=== PATIENT | female | born 1985 | race Caucasian/White ===

== ENCOUNTER → 2022-07-08 | Outpatient (CLI) | payer SELFPAY | END | disposition home or self-care (01) | PROVIDERS: PCP Physician Assistant; Visit Provider Obstetrics & Gynecology | DX: O09.529 Supervision of elderly multigravida, unspecified trimester (principal); Z3A.00 Weeks of gestation of pregnancy not specified | CPT/HCPCS: 87086; 87088 ==

== ENCOUNTER → 2022-08-04 | Outpatient (CLI) | payer SELFPAY ==
[2022-08-04 17:14] LABS: Absolute Lymphocyte Count 1.61 X10^3/uL (0.83-4.51); Absolute Neutrophil Count 9.2 X10^3/uL (2.0-7.7); Basophil# 0.02 X10^3/uL; Basophil% 0.2 % (0-1); Eosinophil# 0.13 X10^3/uL; Eosinophils% 1.1 % (0-5); Hematocrit 35.5 % (37-47); Hemoglobin 12.3 g/dL (12.0-15.0); Lymphocyte # 1.61 X10^3/ul (0.83-4.51); Lymphocyte % 13.7 % (19-41); Mean Corp Hgb Conc 34.6 g/dL (32-36); Mean Corpuscular Hgb 29.9 pg (27.0-32.0); Mean Corpuscular Volume 86.2 fL (81-99); Mean Platelet Vol. 9.5 fl (6.2-12.0); Monocyte# 0.62 X10^3/uL; Monocyte% 5.3 % (0-10); NRBC Flagged by Analyzer 0 % (0-5); Neutrophil # 9.24 X10^3/uL (2.7-7.7); Neutrophil % 78.3 % (47-70); Platelet Count 227 K/mm3 (150-450); RBC Distribution Width CV 13.2 % (11.6-14.6); RBC Distribution Width SD 41.1 fl (35.1-43.9); Red Blood Count 4.12 M/mm3 (4.2-5.4); White Blood Count 11.8 K/mm3 (4.4-11.0)
[2022-08-04 17:47] LABS: Glucose Challenge Gest 1H 50g 115 mg/dL (70-140)
[2022-08-04 18:50] LABS: HIV - WCH Non-Reactive (Nonreactive); Hepatitis B Surface Antigen Non-Reactive (Nonreactive); Hepatitis C Antibody Non-Reactive (Nonreactive); Rubella IgG Equiv (Nonreactive); Syphilis Antibodies Non-reactive
== END | disposition home or self-care (01) ==
LOC: LAB 16:40
PROVIDERS: PCP Physician Assistant; Visit Provider Obstetrics & Gynecology
DX: O09.529 Supervision of elderly multigravida, unspecified trimester (principal)
CPT/HCPCS: 36415; 82950; 85025; 86703; 86762; 86780; 86803; 86850; 86900; 86901; 87340

== ENCOUNTER → 2022-08-18 | Outpatient (CLI) | payer SELFPAY, OTHER ==
--- NOTE | 2022-08-18 13:01 | US_ITS ---
STUDY: SECOND AND THIRD TRIMESTER OBSTETRICAL ULTRASOUND REASON FOR EXAM: Female, 36 years old anatomy LMP: 01/21/2022 TECHNIQUE: Transabdominal and Transvaginal TECHNICAL QUALITY: Adequate. PRIOR ULTRASOUND: None. FINDINGS: There is a single intrauterine fetus. The fetus is in a cephalic presentation. There is demonstrated cardiac activity with a heart rate of 146 bpm. There is a normal amniotic fluid volume. The largest amniotic fluid pocket measures 7.9 cm. The amniotic fluid index (JAMEY) is 23.71 cm. The placenta is posterior and left lateral in location and is not low lying. There are Grade 1 placental changes. The cervix measures 4.4 cm in length. The adnexal regions are not visualized. BIOMETRY: BPD: 7.78 cm: 31 weeks, 1 days HC: 28.91 cm : 31 weeks, 6 days AC: 26.11 cm: 30 weeks, 2 days FL: 5.17 cm: 27 weeks, 4 days CI: 77.4% FL/BPD: 66.5% FL/HC: FL/AC: 19.8% HC/AC: 1.11 age by current US: 30 weeks, 4 days. BRENDAN by current US: 10/23/2021. Estimated weight: 1427 grams, +/- 214 grams, 30 %. Age by LMP: 29 weeks, 6 days. BRENDAN by LMP: 10/28/2022. ANATOMY: Gender: Female Cranium: Normal lateral ventricles. Normal choroid plexus. Normal cerebellum. Normal cisterna magna. Normal face, nose and lips. Chest: Normal 4-chamber heart. Abdomen/Pelvis: Normal diaphragm. Normal stomach. Normal abdominal wall. Normal cord insertion. Normal 3 vessel cord. Normal kidneys. Normal bladder. Spine: Normal cervical spine. Normal thoracic spine. Normal lumbar spine. Normal sacrum. Extremities: Normal bilateral upper extremities. Normal bilateral lower extremities. IMPRESSION: Single live uterine gestation with a mean gestational age of 30 weeks and 4 days. Electronically Signed: Terrence Mcmanus MD at 10:54 EST , STUDY: FIRST TRIMESTER OBSTETRICAL ULTRASOUND REASON FOR EXAM: Female, 36 years old . Cervical length. LMP: 01/21/2022 TECHNIQUE: Transvaginal TECHNICAL QUALITY: Adequate. PRIOR ULTRASOUND: None. FINDINGS: Cervical length measures 4.4 cm. US/OB Anatomy Scan IMPRESSION: Cervical length measures 4.4 cm. Electronically Signed: Terrence Mcmanus MD at 10:54 EST ,
--- NOTE | 2022-08-18 13:01 | ECHOD_ITS ---
Reason For Study: ARRYTHMIA Procedure This was a 2D Doppler, Color Flow transthoracic echocardiogram. Exam performed in department. Left Ventricle Normal LV size. Left ventricular systolic function is normal. The estimated ejection fraction is 65 %. No evidence for diastolic dysfunction. No regional wall motion abnormalities noted. Right Ventricle Normal RV size. Normal systolic function. Atria Borderline enlarged left atrium. Normal right atrium. No doppler evidence for ASD. Mitral Valve There is no mitral annular calcification. Normal mitral valve. Trivial mitral valve insufficiency. Tricuspid Valve Normal tricuspid valve. Trivial tricuspid valve insufficiency. Right ventricular systolic pressure estimated to be 26 mmHg. Aortic Valve Trisinus/trileaflet aortic valve. Normal aortic valve. Pulmonic Valve The pulmonic valve is not well visualized. Great Vessels Normal sized aortic root. Pericardium/Pleural No pericardial effusion. MMode/2D Measurements & Calculations LVIDd: 4.7 cm IVSd: 1.2 cm Ao root diam: 3.5 cm LVIDs: 3.3 cm LVPWd: 1.0 cm RVDd: 3.4 cm FS: 30.3 % LAV(MOD-bp): 91.4 ml LVAd ap4: 36.2 cm2 SV(MOD-sp4): 90.7 ml LAV(MOD-bp) Indexed: 40.9 ml/m2 LVLd ap4: 8.1 cm LAV(MOD-sp2): 94.4 ml EDV(MOD-sp4): 131.7 ml LAV(MOD-sp4): 82.7 ml EDV(sp4-el): 136.8 ml LVAs ap4: 17.2 cm2 LVLs ap4: 6.2 cm ESV(MOD-sp4): 41.0 ml ESV(sp4-el): 40.2 ml EF(MOD-sp4): 68.9 % EF(sp4-el): 70.6 % SV(sp4-el): 96.5 ml LA A4 area: 24.6 cm2 LA dimension(2D): 4.0 cm RA A4 area: 18.7 cm2 Time Measurements MV dec time: 0.13 sec Doppler Measurements & Calculations MV E max sonido: 103.4 cm/sec Lat Peak E' Sonido: 13.5 cm/sec Med Peak E' Sonido: 9.2 cm/sec MV A max sonido: 75.7 cm/sec E/E' lat: 7.7 E/E' med: 11.2 MV E/A: 1.4 MV V2 max: 117.6 cm/sec Ao V2 max: 168.5 cm/sec MV max P.5 mmHg MV dec slope: 809.5 cm/sec2 Ao max P.4 mmHg MV V2 mean: 74.2 cm/sec Ao V2 mean: 111.7 cm/sec MV mean P.4 mmHg Ao mean P.8 mmHg MV V2 VTI: 33.3 cm Ao V2 VTI: 33.4 cm AV (velocity ratio): 0.79 LV V1 max: 129.8 cm/sec PA V2 max: 118.7 cm/sec TR max sonido: 237.8 cm/sec LV V1 max P.7 mmHg PA V2 mean: 81.0 cm/sec TR max P.6 mmHg LV V1 mean P.7 mmHg LV V1 mean: 90.1 cm/sec LV V1 VTI: 26.3 cm ECHO/Echo Complete Interpretation Summary Left ventricular systolic function is normal. The estimated ejection fraction is 65 %. Borderline enlarged left atrium. Trivial mitral valve insufficiency. Trivial tricuspid valve insufficiency. Right ventricular systolic pressure estimated to be 26 mmHg. No evidence for diastolic dysfunction. Ordering Physician: Prosper Rollins Referring Physician: Prosper Rollins Performed By: Belgica Pritchett RCS
== END | disposition home or self-care (01) ==
LOC: CVS 12:59
PROVIDERS: PCP Physician Assistant; Referring Provider Internal Medicine Cardiovascular Disease; Visit Provider Internal Medicine Cardiovascular Disease
DX: O09.529 Supervision of elderly multigravida, unspecified trimester (principal); I47.1 Supraventricular tachycardia; O99.891 Other specified diseases and conditions complicating pregnancy; R01.1 Cardiac murmur, unspecified; Z3A.00 Weeks of gestation of pregnancy not specified
CPT/HCPCS: 76805; 76817; 93306

== ENCOUNTER 2022-09-16 12:25 | Outpatient (CLI) | payer OTHER, SELFPAY ==
[2022-09-16 12:32] VITALS: BMI 44.7
--- NOTE | 2022-09-16 12:32 | US_ITS ---
STUDY: OBSTETRICAL ULTRASOUND - BIOPHYSICAL PROFILE REASON FOR EXAM: Female, 36 years old deceleration in office LMP: 01/21/2022. PRIOR ULTRASOUND: Comparison is made with prior study dated 08/18/2022. TECHNIQUE: Transabdominal TECHNICAL QUALITY: Adequate. FINDINGS: There is a single intrauterine fetus. The fetus is in a cephalic presentation. There is demonstrated cardiac activity with a heart rate of 137 bpm. There is a normal amniotic fluid volume. The largest amniotic fluid pocket measures 4.3 cm. The amniotic fluid index (JAMEY) is 13.4 cm. The placenta is fundal in location. There are Grade 0 placental changes. Age by LMP: 34 weeks, 0 days. BRENDAN by LMP: 10/28/2022. BIOPHYSICAL PROFILE: Breathing Movements (FBM): 2 Gross Body Movements (GBM): 2 Tone (FT): 2 Amniotic Fluid Volume (AFV): 2 TOTAL SCORE: 8 / 8 US/Biophysical Prof W/O Non Stres IMPRESSION: Normal biophysical profile of 04/05. Electronically Signed: Terrence Mcmanus MD at 14:05 EST ,
[2022-09-16 12:54] VITALS: BP 133/82; PULSE 69; TEMP 36.7; O2SAT 98
[2022-09-16] MEDS: Betamethasone/Betamethasone 30 MG/5 ML Vial 12 MG IM (14:49)
[2022-09-16 14:56] LABS: Absolute Lymphocyte Count 1.43 X10^3/uL (0.83-4.51); Absolute Neutrophil Count 9.6 X10^3/uL (2.0-7.7); Basophil# 0.03 X10^3/uL; Basophil% 0.3 % (0-1); Eosinophil# 0.11 X10^3/uL; Eosinophils% 0.9 % (0-5); Hematocrit 37.8 % (37-47); Hemoglobin 12.7 g/dL (12.0-15.0); Lymphocyte # 1.43 X10^3/ul (0.83-4.51); Lymphocyte % 12.1 % (19-41); Mean Corp Hgb Conc 33.6 g/dL (32-36); Mean Corpuscular Hgb 29.1 pg (27.0-32.0); Mean Corpuscular Volume 86.7 fL (81-99); Mean Platelet Vol. 9.3 fl (6.2-12.0); Monocyte% 5.1 % (0-10); NRBC Flagged by Analyzer 0 % (0-5); Neutrophil # 9.56 X10^3/uL (2.7-7.7); Neutrophil % 80.8 % (47-70); Platelet Count 225 K/mm3 (150-450); RBC Distribution Width CV 13.2 % (11.6-14.6); RBC Distribution Width SD 41.4 fl (35.1-43.9); Red Blood Count 4.36 M/mm3 (4.2-5.4); White Blood Count 11.8 K/mm3 (4.4-11.0)
[2022-09-16 20:10] VITALS: BP 117/64; PULSE 80; TEMP 36.7
--- NOTE | 2022-09-17 00:25 | HP.PCM.OB_ITS ---
HPI - General General Date of Admission: 09/16/22 HPI Narrative MIRELLA CASTRO, is a 36 F who presents secondary to heart rate late decelerations x2. Patient was seen in the office for routine NST and had a late on the monitor and therefore was sent down for extended monitoring and had an 8 out of 8 BPP but had another isolated late deceleration. Overall heart rate tracing is reassuring patient is being admitted for extended monitoring due to the presence of the 2 Decels. Maternal Data Information BRENDAN Calculator Estimated Delivery Date Method Current WG Current Estimate 10/28/22 LMP (Certain) 34w 1d PFSH PFS Medical History Essential hypertension Palpitation SVT (supraventricular tachycardia) Home Medications vit,calcium no.40-iron fum 27 mg iron-folate no.1 1 mg tablet (PNV- Select) tab PO 06/29/22 [History Last Taken Unknown] metoprolol tartrate 100 mg tablet 100 mg PO DAILY #90 tabs 07/09/22 [Rx Last Taken Unknown] calcium carbonate 600 mg calcium (1,500 mg) tablet (Calcium) 600 mg PO DAILY 08/04/22 [History Last Taken Unknown] Allergy/AdvReac Type Severity Reaction Status Date / Time No Known Allergies Allergy Verified 09/16/22 12:43 Family History Grandmother Breast cancer, Onset Age: 60 maternal Aunt Breast cancer, Onset Age: 60 two maternal Aunts with breast cancer Uterine cancer, Onset Age: 60 maternal Aunt Heart valve replaced Social History adopted: No household members: spouse and children housing: house number of children: 7 current occupational status: unemployed 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 current occupational exposures/hazards: No pets and animals: No history of recent travel: No sexually active: Yes Smoking Status: Never smoker alcohol intake: never substance use type: does not use well-balanced diet: daily or most days caffeine: No eating out: rarely or never during the past year weight has: increased > 10 lbs what type of physical activity do you participate in: none aurora/latter day: Taoist seatbelt use: sometimes do you feel safe at home: Yes additional social history: Edgardo- Olson/excavating History 11 Elective abortions Hx Para 7 Spontaneous abortions 3 Hx # Term Pregnancies Ectopic pregnancies Hx # Pregnancies Multiple births # of living children 7 Past Pregnancies Del. 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 with middle school principal Cathie Reynoso 07/08/17 Diamond 39 live - full term Female Tristan Reynoso 09/11/20 Mary Beth 39 live - full term Female Tristan Reynoso Delivery Date: 02/11/06 Last Updated by: Susan Reynolds IOL Pre-eclampsia Delivery Date: 07/01/08 Last Updated by: Susan Reynolds pitocin Visit Details Expected Delivery Route/Plan Labor Preferences- CB/BF classes: [] labor support person: [] labor intervention preferences: [] pain management options preferred: [] cut cord/dad catch: [] : [] PP control planned: [] discussed possible routes of delivery and associated risks: [] special requests: [] Plans Covid status: [] Flu vaccine: [] Tdap vaccine: [] Rhogam: [] LARC form signed: [] Problem list reviewed and updated with the most current plan of care details and appropriate orders placed. Relevant counseling for the gestational age provided. Continue routine care and follow up unless otherwise noted in visit notes/problem list details OB Flowsheet Initial Weight: Not Recorded Date -?-?-?-?-?-?-?-?-?-?-?-?- EGA Weight BP Urine Prot -?-?-?-?-?-?-?-?-?-?-?-?- Glucose FHR FuHt Pres Dilation -?-?-?-?-?-?-?-?-?-?-?-?- Effaced St Visit Note 07/08/22 -?-?-?-?-?-?-?-?-?-?-?-?- 24w 0d 117.991 kg 124/83 Negat crow -?-?-?-?-?-?-?-?-?-?-?-?- Negative 144 25 -?-?-?-?-?-?-?-?-?-?-?-?- JV- pt is a jurado sfer from [facility] due to hypertension and heart arrhythmia. Pt states that she has had this for several years on and off. She delivered her first 2 babies at [facility], her next 3 at home and last 2 at a birthing center. 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 Appt today for cardiology was missed due to being in our office. will get rescheduled. Plan for ultrasound and GCT at very minimum. other labs also ordered. 08/04/22 -?-?-?-?-?-?-?-?-?-?-?-?- 27w 6d 120.429 kg 134/83 Negat crow -?-?-?-?-?-?-?-?-?-?-?-?- Negative 155 -?-?-?-?-?-?-?-?-?-?-?-?- JV- no lof ,vagi nal bleeding, or dec fm. her son was involved in a traumatic fall and was hospitalized for brain bleed so missed her us. us rescheduled. did gct today and saw cardiology today. plan is for Echo. rto in 2 weeks. 08/18/22 -?-?-?-?-?-?-?-?-?-?-?-?- 29w 6d 121.109 kg 115/75 Negat crow -?-?-?-?-?-?-?-?-?-?-?-?- Negative 156 28 -?--?-?-?-?-?-?-?-?-?-?-?- JV- no lof, vagi nal bleeding, or dec fm. had growth scan today, plan for monthly growth scans, and also had echo. both results are pending 09/03/22 -?-?-?-?-?-?-?-?-?-?-?-?- 32w 1d 122.47 kg 120/77 -?-?-?-?-?-?-?-?-?-?-?-?- 140 -?-?-?-?-?-?-?-?-?-?-?-?- SM- nst today 09/16/22 -?-?-?-?-?-?-?-?-?-?-?-?- 34w 0d 122.243 kg 126/78 Negat crow -?-?-?-?-?-?-?-?-?-?-?-?- Negative 150 -?-?-?-?-?-?-?-?-?-?-?-?- JV- prolonged de kayla after a contraction but with variability within the decel, suspect cord compression but sending to L&D for prolonged monitoring and BPP. 09/16/22 -?-?-?-?-?-?-?-?-?-?-?-?- 34w 0d 121.8 kg 133/82 117/64 -?-?-?-?-?-?-?-?-?-?-?-?- -?-?-?-?-?-?-?-?-?-?-?-?- NST FHR Rate Baby A Baseline: 140 Variability:: Moderate Accelerations:: 15 x 15 Decelerations:: Late (Isolated initially upon evaluation) NST Reactive:: Yes FHR Category:: Category I (Now) Uterine Activity:: no reg Vital Signs Vital Signs Vital Signs: 09/16/22 12:54 09/16/22 12:54 09/16/22 12:54 Temperature Temperature Source Temporal Pulse Rate 69 Blood Pressure 133/82 H BP Systolic 133 BP Diastolic 82 Pulse Ox 09/16/22 12:54 09/16/22 12:54 09/16/22 20:10 Temperature 98.0 F Temperature Source Pulse Rate Blood Pressure 117/64 BP Systolic 117 BP Diastolic 64 Pulse Ox 98 09/16/22 20:10 09/16/22 20:10 09/16/22 20:10 Temperature 98.0 F Temperature Source Temporal Pulse Rate 80 Blood Pressure BP Systolic BP Diastolic Pulse Ox Weight Weight: 121.8 kg Body Mass Index (BMI) 44.7 Labs Labs Labs: Blood Type O POSITIVE Antibody Screen NEGATIVE Hct 37.8 % (37-47) Hgb 12.7 g/dL (12.0-15.0) Obstetrics US Syphilis Total Ab Non-reactive Rubella IgG Antibody Equiv (Nonreactive) Hep Bs Antigen Non-Reactive (Nonreactive) HIV 1&2 Antibody Non-Reactive (Nonreactive) Glucose 1 Hr 50 gm 115 mg/dL (70-140) Assessment & Plan (1) Late deceleration of heart rate: (2) Rubella non-immune status, antepartum: COMMENT: MMR post delivery (3) Essential hypertension: COMMENT: followed by cardiology on metoprolol. deliver 39 weeks or sooner if bp's not controlled start nsts 32 weeks , weekly. monthly growth ultrasounds (4) Cardiac dysrhythmia: COMMENT: metoprolol (5) Supervision of high-risk of elderly multigravida: COMMENT: PRR , BRENDAN 10/28/22 Lucas Carroll, ([place]ort[place] 16.5week loss), Emmanuel Chan Calvin, Jennica, Mary Beth Egdardo (6) : QUALIFIERS: Weeks of gestation: 34 weeks Qualified Code(s): Z3A.34 - 34 weeks gestation of COMMENT: anatomy nl, borderline high JAMEY, repeat 3-4 wks, discussed genetic and carrier testing (7) History of multiple miscarriages: COMMENT: 2 miscarriages 9 weeks, 1-16.5 week loss PLAN: Plan Admit patient for short-term observation, betamethasone given for prematurity. BPP 8 out of 8 Charges/Coding Multi Select Codes Visit Charges Observation E&M Codin Initial observation care L3 Urinary/Genital Urinary/Genital CPT Codes: 44809-17 non-stress test Interp
[2022-09-17 01:15] VITALS: TEMP 36.7
[2022-09-17 01:16] VITALS: BP 111/62; PULSE 76
[2022-09-17 09:33] VITALS: BP 126/79; PULSE 85
[2022-09-17] MEDS: Betamethasone/Betamethasone 30 MG/5 ML Vial 12 MG IM (11:40)
[2022-09-17 11:45] VITALS: BP 128/80; PULSE 74
[2022-09-17] MEDS: Prenatal Vits Tablet 1 TABLET PO (11:45)
[2022-09-17] MEDS: Metoprolol Tartrate 100 MG Tablet PO (11:45)
[2022-09-17 11:46] VITALS: BP 128/80; PULSE 74
--- NOTE | 2022-09-17 13:34 | PN.OBGYN_ITS ---
Subjective Subjective no decelerations overnight reassuring heart rate tracing patient doing well Objective Data Objective Data Vital Signs: Vital Signs Temp Pulse BP Pulse Ox 98.1 F 74 128/80 H 98 09/17/22 01:15 09/17/22 11:46 09/17/22 11:46 09/16/22 12:54 Weight: 268 lb 8.368 oz Body Mass Index (BMI) 44.7 Lab / Micro Data Result Diagrams: 09/16/22 14:45 Labs: Laboratory Results - last 24 hr 09/16/22 14:45: WBC 11.8 H, RBC 4.36, Hgb 12.7, Hct 37.8, MCV 86.7, MCH 29.1, MCHC 33.6, RDW Std Deviation 41.4, RDW Coeff of Mervat 13.2, Plt Count 225, MPV 9.3, Immature Gran % (Auto) 0.800, Neut % (Auto) 80.8 H, Lymph % (Auto) 12.1 L, [place] % (Auto) 5.1, Eos % (Auto) 0.9, Baso % (Auto) 0.3, Absolute Neuts (auto) 9.6 H, Absolute Lymphs (auto) 1.43, Nucleated RBC % 0 09/16/22 14:45: Blood Type O POSITIVE, Antibody Screen NEGATIVE Radiography Diagnostic Testing: Radiology Impression Biophysical Profile Ultrasound 09/16/22 12:32 IMPRESSION: Normal biophysical profile of 88. Electronically Signed: Terrence Mcmanus MD at 14:05 EST Reading Location ID and State: [address] [place] [address] , Service support , ROS Constitutional Constitutional: Reports systems reviewed and no addt'l complaints, except as documented and as per HPI ENT HEENT: Reports systems reviewed and no addt'l complaints, except as documented Cardiovascular Cardiovascular: Reports systems reviewed and no addt'l complaints, except as documented Respiratory/Chest Respiratory/Chest: Reports systems reviewed and no addt'l complaints, except as documented Gastrointestinal Gastrointestinal: Reports as per HPI Genitourinary Genitourinary: Reports as per HPI Musculoskeletal Musculoskeletal: Reports systems reviewed and no addt'l complaints, except as documented Integumentary Integumentary: Reports systems reviewed and no addt'l complaints, except as documented Neurologic Neurologic: Reports systems reviewed and no addt'l complaints, except as documented Physical Exam Const alert, oriented x3 and no apparent distress HEENT Head and Scalp: normocephalic and atraumatic Neck full ROM and no lymphadenopathy Chest inspection of chest normal Resp normal respiratory effort GI GI Narrative: gravid, abdomen nontender, AGA NST FHR Rate Baby A Baseline: 140 Variability:: Moderate Accelerations:: 15 x 15 Decelerations:: None NST Reactive:: Yes FHR Category:: Category I Uterine Activity:: no reg Assessment & Plan (1) Late deceleration of heart rate: COMMENT: Status post short-term observation with steroid administration 09/16 and 09/17 (2) Rubella non-immune status, antepartum: COMMENT: MMR post delivery (3) Essential hypertension: COMMENT: followed by cardiology on metoprolol. deliver 39 weeks or sooner if bp's not controlled start nsts 32 weeks , weekly. monthly growth ultrasounds (4) Supervision of high-risk of elderly multigravida: COMMENT: PRR , BRENDAN 10/28/22 PC Lucas Yan, (Cortés 16.5week loss), Emmanuel Chan Calvin, Jennica, Lashawna Edgardo (5) : QUALIFIERS: Weeks of gestation: 34 weeks Qualified Code(s): Z3A.34 - 34 weeks gestation of COMMENT: anatomy nl, borderline high JAMEY, repeat 3-4 wks, discussed genetic and carrier testing (6) History of multiple miscarriages: COMMENT: 2 miscarriages 9 weeks, 1-16.5 week loss PLAN: Plan Discharge to home after second steroid dose today and recommend growth ultrasound and BPP at the beginning and next week and follow-up in the office for NST the end of the week. Charges/Coding Multi Select Codes Visit Charges Observation E&M Codin Observation care discharge Urinary/Genital Urinary/Genital CPT Codes: 38827-76 non-stress test Interp
== END 2022-09-17 12:00 | disposition home or self-care (01) ==
LOC: WPOUT 12:31 → WP 12:32
PROVIDERS: PCP Physician Assistant; Visit Provider Obstetrics & Gynecology
DX: O36.8330 Maternal care for abnormalities of the fetal heart rate or rhythm, third trimester, not applicable or unspecified (principal); O10.913 Unspecified pre-existing hypertension complicating pregnancy, third trimester; O26.23 Pregnancy care for patient with recurrent pregnancy loss, third trimester; O09.523 Supervision of elderly multigravida, third trimester; O99.413 Diseases of the circulatory system complicating pregnancy, third trimester; I49.9 Cardiac arrhythmia, unspecified; Z3A.34 34 weeks gestation of pregnancy
CPT/HCPCS: 36415; 59025; 59050; 76819; 85025; 86850; 86900; 86901; 96372; 99221; G0378; J0702

== ENCOUNTER → 2022-09-23 | Outpatient (CLI) | payer SELFPAY, OTHER ==
--- NOTE | 2022-09-23 14:27 | US_ITS ---
STUDY: SECOND AND THIRD TRIMESTER OBSTETRICAL ULTRASOUND REASON FOR EXAM: Female, 36 years old growth TECHNIQUE: Transabdominal PRIOR ULTRASOUND: 09/16/2022. FINDINGS: There is a single intrauterine fetus. The fetus is in a transverse lie with the head on the maternal right side. There is demonstrated cardiac activity with a heart rate of 144 bpm. There is a normal amniotic fluid volume. The largest amniotic fluid pocket measures 5.9 cm. The amniotic fluid index (JAMEY) is 18 cm. The placenta is fundal. There are Grade 1 placental changes. The cervix measures 5.4 cm in length. The adnexal regions are not visualized. BPD: 8.9 cm = 35 weeks, 6 day(s) HC: 32.2 cm = 36 weeks, 3 day(s) AC: 32.6 cm = 36 weeks, 3 day(s) FL: 6.7 cm = 34 weeks, 4 day(s) EGA by ultrasound: 35 weeks 5 day(s) BRENDAN by ultrasound: 10/23/22 Estimated weight: 2826 grams Weight percentile: 75% US/OB Limited With Biometrics IMPRESSION: Living intrauterine with estimated gestational age of 35 weeks and 5 days. Electronically Signed: Thomas Marques MD at 17:27 EST ,
== END | disposition home or self-care (01) ==
PROVIDERS: PCP Physician Assistant; Referring Provider Obstetrics & Gynecology; Visit Provider Obstetrics & Gynecology
DX: I10 Essential (primary) hypertension (principal)
CPT/HCPCS: 76816

== ENCOUNTER 2022-09-30 17:52 | Inpatient (IN) | payer SELFPAY, OTHER ==
[2022-09-30] VITALS (11 sets, daily range): BP systolic 114–147; BP diastolic 61–96; PULSE 82–97; TEMP 36.3–37.2; O2SAT 97; BMI 43.7
[2022-09-30 13:34] LABS: Group B Strep DNA By PCR POSITIVE (Negative); Probe Check PASS
[2022-09-30] MEDS: Lactated Ringers 1,000 ML 100 ML IV (15:15)
[2022-09-30] MEDS: Oxytocin 15 Units/NS 250ml 15 UNITS/250 ML IV.SOLN IV (16:00)
[2022-09-30 18:33] LABS: Absolute Lymphocyte Count 0.73 X10^3/uL (0.83-4.51); Absolute Neutrophil Count 8.2 X10^3/uL (2.0-7.7); Basophil# 0.02 X10^3/uL; Basophil% 0.2 % (0-1); Eosinophil# 0.08 X10^3/uL; Eosinophils% 0.8 % (0-5); Hematocrit 38.9 % (37-47); Hemoglobin 12.5 g/dL (12.0-15.0); Lymphocyte # 0.73 X10^3/ul (0.83-4.51); Lymphocyte % 7.5 % (19-41); Mean Corp Hgb Conc 32.1 g/dL (32-36); Mean Corpuscular Hgb 28.7 pg (27.0-32.0); Mean Corpuscular Volume 89.4 fL (81-99); Mean Platelet Vol. 10.2 fl (6.2-12.0); Monocyte# 0.58 X10^3/uL; NRBC Flagged by Analyzer 0 % (0-5); Neutrophil # 8.17 X10^3/uL (2.7-7.7); Neutrophil % 84.4 % (47-70); Platelet Count 232 K/mm3 (150-450); RBC Distribution Width CV 13.5 % (11.6-14.6); RBC Distribution Width SD 44.1 fl (35.1-43.9); Red Blood Count 4.35 M/mm3 (4.2-5.4); White Blood Count 9.7 K/mm3 (4.4-11.0)
[2022-09-30] MEDS: miSOPROStol 25 MCG TABLET VAGINAL ×2 (19:00→23:02)
--- NOTE | 2022-09-30 19:25 | HP.PCM.OB_ITS ---
HPI - General General Date of Admission: 09/30/22 HPI Narrative MIRELLA CASTRO, is a 36 F who presents with equivocal [employer] S[employer]IOR [employer]OCIATE after having a late decel in the office. she has had issues in the past with this and received steroids two weeks ago during an admission for late decels. Maternal Data Information BRENDAN Calculator Estimated Delivery Date Method Current WG Current Estimate 10/28/22 LMP (Certain) 36w 0d PFSH PFSH Medical History Essential hypertension Palpitation SVT (supraventricular tachycardia) Home Medications vit,calcium no.40-iron fum 27 mg iron-folate no.1 1 mg tablet (PNV- Select) 1 tab PO DAILY md ordered 06/29/22 [History Last Taken 09/29/22] calcium carbonate 600 mg calcium (1,500 mg) tablet (Calcium) 600 mg PO DAILY md ordered 08/04/22 [History Last Taken 09/29/22] metoprolol tartrate 100 mg tablet (Lopressor) 100 mg PO DAILY md ordered 09/30/22 [History Last Taken 09/30/22] Allergy/AdvReac Type Severity Reaction Status Date / Time No Known Allergies Allergy Verified 09/30/22 12:05 Family History Grandmother Breast cancer, Onset Age: 60 maternal Aunt Breast cancer, Onset Age: 60 two maternal Aunts with breast cancer Uterine cancer, Onset Age: 60 maternal Aunt Heart valve replaced Social History adopted: No household members: spouse and children housing: house number of children: 7 current occupational status: unemployed 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 current occupational exposures/hazards: No pets and animals: No history of recent travel: No sexually active: Yes Smoking Status: Never smoker alcohol intake: never substance use type: does not use well-balanced diet: daily or most days caffeine: No eating out: rarely or never during the past year weight has: increased > 10 lbs what type of physical activity do you participate in: none aurora/zoroastrian: Caodaism seatbelt use: sometimes do you feel safe at home: Yes additional social history: Edgardo- Olson/excavating History 11 Elective abortions Hx Para 7 Spontaneous abortions 3 Hx # Term Pregnancies Ectopic pregnancies Hx # Pregnancies Multiple births # of living children 7 Past Pregnancies Del. 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 Cathie Reynoso 07/08/17 Diamond 39 live - full term Female Tristan Reynoso 09/11/20 Mary Beth 39 live - full term Female Tristan Reynoso Delivery Date: 02/11/06 Last Updated by: Susan Reynolds IOL Pre-eclampsia Delivery Date: 07/01/08 Last Updated by: Susan Reynolds pitocin Visit Details Expected Delivery Route/Plan Labor Preferences- CB/BF classes: [] labor support person: [] labor intervention preferences: [] pain management options preferred: [] cut cord/dad catch: [] : [] PP control planned: [] discussed possible routes of delivery and associated risks: [] special requests: [] Plans Covid status: [] Flu vaccine: [] Tdap vaccine: [] Rhogam: [] LARC form signed: [] Problem list reviewed and updated with the most current plan of care details and appropriate orders placed. Relevant counseling for the gestational age provided. Continue routine care and follow up unless otherwise noted in visit notes/problem list details OB Flowsheet Initial Weight: Not Recorded Date -?-?-?-?-?-?-?-?-?-?-?-?- EGA Weight BP Urine Prot -?-?-?-?-?-?-?-?-?-?-?-?- Glucose FHR FuHt Pres Dilation -?-?-?-?-?-?-?-?-?-?-?-?- Effaced St Visit Note 07/08/22 -?-?-?-?-?-?-?-?-?-?-?-?- 24w 0d 260 lb 2 oz 124/83 Nega tive -?-?-?-?-?-?-?-?-?-?-?-?- Negative 144 25 -?-?-?-?-?-?-?-?-?-?-?-?- JV- pt is a jurado sfer from [facility] due to hypertension and heart arrhythmia. Pt states that she has had this for several years on and off. She delivered her first 2 babies at [facility], her next 3 at home and last 2 at a birthing center. (all vaginal deliveries) She is willing and excited to meet our track superintendent if she is is stable. Appt today for cardiology was missed due to being in our office. will get rescheduled. Plan for ultrasound and GCT at very minimum. other labs also ordered. 08/04/22 -?-?-?-?-?-?-?-?-?-?-?-?- 27w 6d 265 lb 8 oz 134/83 Nega tive -?-?-?-?-?-?-?-?-?-?-?-?- Negative 155 -?-?-?-?-?-?-?-?-?-?-?-?- JV- no lof ,vagi nal bleeding, or dec fm. her son was involved in a traumatic fall and was hospitalized for brain bleed so missed her us. us rescheduled. did gct today and saw cardiology today. plan is for Echo. rto in 2 weeks. 08/18/22 -?-?-?-?-?-?-?-?-?-?-?-?- 29w 6d 267 lb 115/75 Negative -?-?-?-?-?-?-?-?-?-?-?-?- Negative 156 28 -?-?-?-?-?-?-?-?-?-?-?-?- JV- no lof, vagi nal bleeding, or dec fm. had growth scan today, plan for monthly growth scans, and also had echo. both results are pending 09/03/22 -?-?-?-?-?-?-?-?-?-?-?-?- 32w 1d 270 lb 120/77 -?-?-?-?-?-?-?-?-?-?-?-?- 140 -?-?-?-?-?-?-?-?-?-?-?-?- SM- nst today 09/16/22 -?-?-?-?-?-?-?-?-?-?-?-?- 34w 0d 269 lb 8 oz 126/78 Nega tive -?-?-?-?-?-?-?-?-?-?-?-?- Negative 150 -?-?-?-?-?-?-?-?-?-?-?--?- JV- prolonged de kayla after a contraction but with variability within the decel, suspect cord compression but sending to L&D for prolonged monitoring and BPP. 09/20/22 -?-?-?-?-?-?-?-?-?-?-?-?- 34w 4d 270 lb 6 oz 126/83 Nega tive -?-?-?-?-?-?-?-?-?-?-?-?- Negative 140 -?-?-?-?-?-?-?-?-?-?-?-?- MH-NST only reac tive 09/23/22 -?-?-?-?-?-?-?-?-?-?-?-?- 35w 0d 270 lb 4 oz 123/85 Nega tive -?-?-?-?-?-?-?-?-?-?-?-?- Negative 140 -?-?-?-?-?-?-?-?-?-?-?-?- JV- nst reactive . plan for IOL at 38 weeks. 09/30/22 -?-?-?-?-?-?-?-?-?-?-?-?- 36w 0d 270 lb 2 oz 116/76 Nega tive -?-?-?-?-?-?-?-?-?-?-?-?- Negative 150 -?-?-?-?-?-?-?-?-?-?-?-?- JV- late decel o n NST today. otherwise reactive. sending to L&D for further monitoring. She has already undergone steroids and understands may stay for induction if persists 09/30/22 -?-?-?-?-?-?-?-?-?-?-?-?- 36w 0d 271 lb 139/92 147/96 114/61 118/66 141/78 139/71 128/87 134/77 -?-?-?-?-?-?-?-?-?-?-?-?- -?-?-?-?-?-?-?-?-?-?-?-?- Notes Visit Date: 09/23/22 Last Updated by: Renee Oliva, DO JV- NST FHR Rate Baby A Baseline: 140 Variability:: Moderate Accelerations:: 15 x 15 Decelerations:: None NST Reactive:: Yes FHR Category:: Category I Uterine Activity:: irregular ROS Constitutional Constitutional: Reports systems reviewed and no addt'l complaints, except as documented Eyes Eyes: Denies change in vision ENT HEENT: Reports systems reviewed and no addt'l complaints, except as documented; Denies headache(s) Cardiovascular Cardiovascular: Reports systems reviewed and no addt'l complaints, except as documented; Denies chest pain or dyspnea Respiratory/Chest Respiratory/Chest: Reports systems reviewed and no addt'l complaints, except as documented Gastrointestinal Gastrointestinal: Reports systems reviewed and no addt'l complaints, except as documented; Denies abdominal pain Genitourinary Genitourinary: Reports systems reviewed and no addt'l complaints, except as documented, contractions Details: present (irregular) and movement Details: present; Denies dysuria or genital lesions Musculoskeletal Musculoskeletal: Reports systems reviewed and no addt'l complaints, except as do cumented Neurologic Neurologic: Reports systems reviewed and no addt'l complaints, except as documented Endocrine Endocrinology: Reports systems reviewed and no addt'l complaints, except as documented Vital Signs Vital Signs Vital Signs: 09/30/22 12:21 09/30/22 12:21 09/30/22 12:37 Temperature Temperature Source Pulse Rate 93 Blood Pressure 139/92 H 147/96 H BP Systolic 139 147 BP Diastolic 92 96 Pulse Ox 09/30/22 12:37 09/30/22 12:42 09/30/22 12:42 Temperature Temperature Source Pulse Rate 93 85 Blood Pressure BP Systolic BP Diastolic Pulse Ox 97 09/30/22 12:37 09/30/22 12:37 09/30/22 12:37 Temperature Temperature Source Temporal Pulse Rate 84 Blood Pressure BP Systolic BP Diastolic Pulse Ox 97 09/30/22 12:37 09/30/22 12:44 09/30/22 12:44 Temperature 98.9 F Temperature Source Pulse Rate 82 Blood Pressure 114/61 BP Systolic 114 BP Diastolic 61 Pulse Ox 09/30/22 12:53 09/30/22 12:53 09/30/22 14:10 Temperature Temperature Source Pulse Rate 86 Blood Pressure 118/66 141/78 H BP Systolic 118 141 BP Diastolic 66 78 Pulse Ox 09/30/22 14:10 09/30/22 14:21 09/30/22 14:21 Temperature Temperature Source Pulse Rate 84 86 Blood Pressure 139/71 H BP Systolic 139 BP Diastolic 71 Pulse Ox 09/30/22 15:53 09/30/22 15:53 09/30/22 15:53 Temperature Temperature Source Temporal Pulse Rate 88 Blood Pressure 128/87 H BP Systolic 128 BP Diastolic 87 Pulse Ox 09/30/22 15:53 09/30/22 15:53 09/30/22 16:35 Temperature 98.2 F Temperature Source Pulse Rate 88 Blood Pressure 134/77 H BP Systolic 134 BP Diastolic 77 Pulse Ox 09/30/22 16:35 Temperature Temperature Source Pulse Rate 85 Blood Pressure BP Systolic BP Diastolic Pulse Ox Weight Weight: 271 lb Body Mass Index (BMI) 43.7 Physical Exam Const alert, oriented x3, no apparent distress and healthy appearing HEENT normocephalic and moist oral mucous membranes Head and Scalp: atraumatic Neck full ROM, no lymphadenopathy, supple and thyroid normal General: trachea midline Lymph Lymphatic: no lymphadenopathy noted Chest inspection of chest normal Resp normal respiratory effort Cardio regular rate GI normal to inspection, nondistended, normoactive bowel sounds, soft to palpation and non-tender Inspection: gravid external exam normal Manual OB Exam: estimated gestational size appropriate, presentation cephalic, dilated, effaced and station Extremity normal to inspection General Extremity: Negative for edema Skin no rashes or lesions noted Neuro no focal motor deficits and deep tendon reflexes 2+ bilaterally Motor Exam: strength 5/5 throughout and clonus absent Psych mental status grossly normal Labs Labs Labs: Blood Type O POSITIVE Antibody Screen NEGATIVE Hct 38.9 % (37-47) Hgb 12.5 g/dL (12.0-15.0) Obstetrics US Syphilis Total Ab Non-reactive Rubella IgG Antibody Equiv (Nonreactive) Hep Bs Antigen Non-Reactive (Nonreactive) HIV 1&2 Antibody Non-Reactive (Nonreactive) Glucose 1 Hr 50 gm 115 mg/dL (70-140) Group B Strep DNA POSITIVE (Negative) H Assessment & Plan (1) Late deceleration of heart rate: COMMENT: Status post short-term observation with steroid administration 09/16 and 09/17 (2) Rubella non-immune status, antepartum: COMMENT: MMR post delivery (3) Cardiac murmur: COMMENT: s/p echo (4) Palpitation: (5) Essential hypertension: COMMENT: followed by cardiology on metoprolol. deliver 38-39 weeks or sooner if bp's not controlled start nsts 32 weeks , weekly. 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 Pain management: plans epidural. GBS negative. Management of any complications: HTN and arrhythmias I have reviewed the [facility] and made any clinically relevant updates.
[2022-09-30 22:19] LABS: Chlamydia Trachomatis by PCR Negative (Negative); Neisserai gonorrhoeae by PCR Negative (Negative); Probe Check PASS; Sample Adequacy Control PASS; Specimen Processing Control PASS
[2022-10-01] VITALS (42 sets, daily range): BP systolic 111–149; BP diastolic 62–101; PULSE 72–99; RESP 16–18; TEMP 36.6–37.1; O2SAT 79–99
[2022-10-01] MEDS: miSOPROStol 25 MCG TABLET VAGINAL (03:06)
[2022-10-01] MEDS: Lactated Ringers 1,000 ML 50 ML IV (04:25)
[2022-10-01] MEDS: 0.9% Normal Saline Single 100 ML IV.SOLN. INTRA-UTER (05:21)
[2022-10-01] MEDS: LACTATED RINGERS 500 ML 999 ML IV ×2 (06:09→07:55)
[2022-10-01] MEDS: Oxytocin 15 Units/NS 250ml 15 UNITS/250 ML IV.SOLN 2 UNITS IV (06:49)
[2022-10-01] MEDS: fentaNYL-bupivacaine (epidural) 100 ML BAG EPIDURAL (07:55)
[2022-10-01] MEDS: Metoprolol Tartrate 100 MG Tablet PO (10:07)
[2022-10-01] MEDS: Oxytocin 15 Units/NS 250ml 15 UNITS/250 ML IV.SOLN 83 UNITS IV (11:29)
[2022-10-02 00:32] VITALS: BP 112/63; PULSE 79; RESP 18
[2022-10-02 05:04] VITALS: BP 130/86; PULSE 84; RESP 18
[2022-10-02] MEDS: Acetaminophen 500 MG Tablet 1000 MG PO ×2 (08:51→20:11)
[2022-10-02 08:58] VITALS: BP 117/80; PULSE 70; RESP 16; TEMP 36.6; O2SAT 97
--- NOTE | 2022-10-02 09:02 | OP.PCM_ITS ---
Assessment & Plan (1) Late deceleration of heart rate: COMMENT: Status post short-term observation with steroid administration 09/16 and 09/17 (2) Rubella non-immune status, antepartum: COMMENT: MMR post delivery (3) Cardiac murmur: COMMENT: s/p echo (4) Essential hypertension: COMMENT: followed by cardiology on metoprolol. deliver 38-39 weeks or sooner if bp's not controlled start nsts 32 weeks , weekly. monthly growth ultrasounds, 09/23 growth 2826g 75% (5) Cardiac dysrhythmia: COMMENT: metoprolol (6) Supervision of high-risk of elderly multigravida: COMMENT: PRR , BRENDAN 10/28/22 PC Lucas Yan, (Cortés 16.5week loss), Emmanuel Chan Calvin, Jennica, Lashawna Edgardo (7) : QUALIFIERS: Weeks of gestation: 36 weeks Qualified Code(s): Z3A.36 - 36 weeks gestation of COMMENT: anatomy nl, borderline high JAMEY, repeat 3-4 wks, discussed genetic and carrier testing (8) History of multiple miscarriages: COMMENT: 2 miscarriages 9 weeks, 1-16.5 week loss (9) Vaginal delivery: COMMENT: SM IOL decel 36 Maternal Data Information BRENDAN Calculator Estimated Delivery Date Method Current WG Current Estimate 10/28/22 LMP (Certain) 36w 2d Vaginal Delivery Operative Information Pre-Operative Diagnosis: IAL Post-Operative Diagnosis: same Surgery / Procedure Performed: Spontaneous Vaginal Delivery Type of Anesthesia: Epidural Special Medications: none Estimated Blood Loss: 100 Fluids Replaced: crystalloid Findings Description of Procedure: Patient began pushing and delivered the head in the NAHOMI presentation. The head was delivered atraumatically. The anterior and posterior shoulders delivered without complication followed by the rest of the and the was placed on the maternal abdomen. Delayed cord clamping was employed for approximately 60 seconds. Cord was clamped and cut and gentle traction was applied to the cord and the placenta delivered spontaneously immediately following it was noted to be intact with three-vessel cord. The perineum and vagina were inspected and noted to have no laceration. EBL was 100 cc. Patient and infant tolerated delivery well. Presentation: NAHOMI Amniotic Membrane Rupture Type: Artificial Amniotic Fluid Description: Clear Placental Delivery Description: Spontaneous Placenta Disposition: [facility] Cord Vessel Description: 3 Vessels Cord Entanglement: None Delayed Cord Clamping: Yes Post Vaginal Delivery Medications Given After Delivery: IV Pitocin Episiotomy Description: None Laceration: None Complication Complications: None Procedures Urinary/Genital [id number]: [id number] Vaginal Delivery [facility]
--- NOTE | 2022-10-02 09:17 | DCINST_ITS ---
Discharge Instructions Diet Discharge Diet: No restrictions Activity Discharge Activity: Return to Normal Activity, May Drive, May Shower and May Take a Tub Bath (in 4 weeks) May resume sexual activity in: 6-8 weeks (after seen by OB provider) Weight Bearing Status: Full weight bearing Lifting Restrictions: none Dressing / Incision Call your doctor if you observe: Fever of 101 or Higher, Inability to urinate, Using more than 1 pad per hour (for more than 2 hours in a row or more), Shortness of breath, Dizziness, Chest pain and - (headache not controlled with tylenol, change in vision) Follow Up Care When: in 6 weeks for visit, call the office to make the appointment. If you had elevated blood pressures call the office to be seen within 1 week. Test Results: Test results from this visit will be discussed in further detail at your follow- up appointment, if applicable. Discharge Plan Admission Admit Date/Time: 09/30/22 17:52 Attending Provider: Liset Lira Primary Care Provider: Osmany Mackay Discharge Orders/Prescriptions Prescriptions: No Action PNV-Select 27-1 mg tablet 1 tab PO DAILY calcium carbonate [Calcium 600] 600 mg calcium (1,500 mg) tablet 600 mg PO DAILY metoprolol tartrate [Lopressor] 100 mg tablet 100 mg PO DAILY Referrals / Follow Up: Osmany Mackay PA-C [Primary Care Provider] - Disposition Disposition (needs filled in before D/C Order can be placed): Home, Self Care
--- NOTE | 2022-10-02 09:17 | PCM.PN.OB ---
Subjective Subjective Patient doing well without complaints. Tolerating PO. Ambulating and voiding without difficulty. feeding well. Denies chest pain, shortness of breath, calf pain/swelling, fevers, chills, lightheadedness. Objective Data Objective Data Vital Signs: Vital Signs Temp Pulse Resp BP Pulse Ox O2 Del Method 98 F 84 18 130/86 H 98 Room Air 10/01/22 20:40 10/02/22 05:04 10/02/22 05:04 10/02/22 05:04 10/01/22 16:29 10/02/22 05:04 Oxygen Delivery Method Room Air Weight: 271 lb Body Mass Index (BMI) 43.7 Intake & Output: Intake and Output for Last 24 Hours 09/30/22 10/01/22 10/02/22 23:59 23:59 23:59 Intake Total 276.42 / 276.42 3125.83 / 3125.83 Output Total 500 / 500 450 / 450 Balance -223.58 / -223.58 2675.83 / 2675.83 Lab / Micro Data Result Diagrams: 09/30/22 15:15 ROS Constitutional Constitutional: Reports systems reviewed and no addt'l complaints, except as documented Cardiovascular Cardiovascular: Reports systems reviewed and no addt'l complaints, except as documented Respiratory/Chest Respiratory/Chest: Reports systems reviewed and no addt'l complaints, except as documented Gastrointestinal Gastrointestinal: Reports systems reviewed and no addt'l complaints, except as documented Physical Exam Const alert, oriented x3 and no apparent distress HEENT Head and Scalp: atraumatic Resp normal respiratory effort GI soft to palpation and non-tender Bimanual Exam - Vag & Uterus: uterus non-tender Uterus Palpation: uterus fundus firm (below Umbilicus) Assessment & Plan (1) Vaginal delivery: COMMENT: SM IOL decel 36 PLAN: Plan s/p PPD # 1 1. routine post delivery care 2. breast feeding- support given 3. rh positive 4. rubella nonimmune
[2022-10-02 10:32] VITALS: PULSE 70
[2022-10-02] MEDS: Metoprolol Tartrate 100 MG Tablet PO (10:32)
[2022-10-02 15:45] VITALS: BP 126/85; PULSE 84; RESP 16; TEMP 36.6; O2SAT 97
[2022-10-02 20:08] VITALS: BP 118/91; PULSE 95; RESP 18; TEMP 37.1; O2SAT 96
[2022-10-02] MEDS: FLU VACC QS2022-23(6MOS UP)/PF 60 MCG/0.5 ML SYRINGE IM (20:11)
[2022-10-03 02:54] VITALS: BP 127/85; PULSE 75; RESP 16; TEMP 36.8; O2SAT 97
[2022-10-03 08:53] VITALS: BP 136/90; PULSE 108; RESP 16; TEMP 36.8
--- NOTE | 2022-10-03 09:25 | PCM.PN.OB ---
Subjective Subjective Patient doing well without complaints. Tolerating PO. Ambulating and voiding without difficulty. feeding well. Denies chest pain, shortness of breath, calf pain/swelling, fevers, chills, lightheadedness. Objective Data Objective Data Vital Signs: Vital Signs Temp Pulse Resp BP Pulse Ox O2 Del Method 98.2 F 108 H 16 136/90 H 97 Room Air 10/03/22 08:53 10/03/22 08:53 10/03/22 08:53 10/03/22 08:53 10/03/22 02:54 10/03/22 02:54 Oxygen Delivery Method Room Air Weight: 271 lb Body Mass Index (BMI) 43.7 Intake & Output: Intake and Output for Last 24 Hours 10/01/22 10/02/22 10/03/22 23:59 23:59 23:59 Intake Total 3125.83 / 3125.83 Output Total 450 / 450 Balance 2675.83 / 2675.83 Lab / Micro Data Result Diagrams: 09/30/22 15:15 ROS Constitutional Constitutional: Reports systems reviewed and no addt'l complaints, except as documented Cardiovascular Cardiovascular: Reports systems reviewed and no addt'l complaints, except as documented Respiratory/Chest Respiratory/Chest: Reports systems reviewed and no addt'l complaints, except as documented Gastrointestinal Gastrointestinal: Reports systems reviewed and no addt'l complaints, except as documented Physical Exam Const alert, oriented x3 and no apparent distress HEENT Head and Scalp: atraumatic Resp normal respiratory effort GI soft to palpation and non-tender Bimanual Exam - Vag & Uterus: uterus non-tender Uterus Palpation: uterus fundus firm (below Umbilicus) Assessment & Plan (1) Vaginal delivery: COMMENT: SM IOL decel 36 (2) Essential hypertension: COMMENT: followed by cardiology on metoprolol. deliver 38-39 weeks or sooner if bp's not controlled start nsts 32 weeks , weekly. monthly growth ultrasounds, 09/23 growth 2826g 75% (3) Cardiac dysrhythmia: COMMENT: metoprolol PLAN: Plan s/p PPD # 2 1. routine post delivery care 2. breast feeding- support given 3. rh positive 4. rubella nonimmune
[2022-10-03 10:30] VITALS: BP 136/90; PULSE 108
[2022-10-03] MEDS: Metoprolol Tartrate 100 MG Tablet PO (10:30)
--- NOTE | 2022-10-12 10:01 | DS.PCM_ITS ---
Providers Date of Admission: 09/30/22 Primary Care Physician: Dr. Osmany Mackay, PA-C Reason For Visit: VAG DELIVERY Diagnosis Discharge Diagnosis (1) Vaginal delivery: Status: Acute Code(s): O80 - Encounter for full-term uncomplicated delivery (2) Essential hypertension: Status: Acute Code(s): I10 - Essential (primary) hypertension (3) Cardiac dysrhythmia: Status: Acute Code(s): I49.9 - Cardiac arrhythmia, unspecified Plan s/p PPD # 2 1. routine post delivery care 2. breast feeding- support given 3. rh positive 4. rubella nonimmune Medications at Discharge Home Medications vit,calcium no.40-iron fum 27 mg iron-folate no.1 1 mg tablet (PNV- Select) 1 tab PO DAILY md ordered 06/29/22 calcium carbonate 600 mg calcium (1,500 mg) tablet (Calcium) 600 mg PO DAILY md ordered 08/04/22 metoprolol tartrate 100 mg tablet (Lopressor) 100 mg PO DAILY md ordered 09/30/22 Hospital Course Summary of Care Provided Hospital Course: admitted IOL and had vaginal delivery uncomplicated discharge home PPD2 Weight / BMI Weight Weight: 271 lb Body Mass Index (BMI) 43.7 ABG / Lab / Microbiology Data Result Diagrams: 09/30/22 15:15 D/C Instructions Discharge Diet: No restrictions May resume sexual activity in: 6-8 weeks (after seen by OB provider) Weight Bearing Status: Full weight bearing Call your doctor if you observe: Fever of 101 or Higher, Inability to urinate, Using more than 1 pad per hour (for more than 2 hours in a row or more), Shortness of breath, Dizziness, Chest pain and - (headache not controlled with tylenol, change in vision) When: in 6 weeks for visit, call the office to make the appointment. If you had elevated blood pressures call the office to be seen within 1 week. Meaningful Use Info Meaningful Use Diagnoses (Choose all that apply): None applicable Discharge Plan Admission Admit Date/Time: 09/30/22 17:52 Attending Provider: Liset Lira Primary Care Provider: Osmany Mackay Discharge Orders/Prescriptions Prescriptions: No Action PNV-Select 27-1 mg tablet 1 tab PO DAILY calcium carbonate [Calcium 600] 600 mg calcium (1,500 mg) tablet 600 mg PO DAILY metoprolol tartrate [Lopressor] 100 mg tablet 100 mg PO DAILY Referrals / Follow Up: Osmany Mackay PA-C [Primary Care Provider] - Disposition Disposition (needs filled in before D/C Order can be placed): Home, Self Care
== END 2022-10-03 14:30 | disposition home or self-care (01) | DRG 805 ==
LOC: WPOUT 17:52 → WP 17:52
PROVIDERS: Admitting Provider Obstetrics & Gynecology; PCP Physician Assistant; Visit Provider Obstetrics & Gynecology
DX: O76 Abnormality in fetal heart rate and rhythm complicating labor and delivery (principal); Z37.0 Single live birth; O99.42 Diseases of the circulatory system complicating childbirth; I47.1 Supraventricular tachycardia; O10.92 Unspecified pre-existing hypertension complicating childbirth; Z3A.36 36 weeks gestation of pregnancy; O26.23 Pregnancy care for patient with recurrent pregnancy loss, third trimester; O99.892 Other specified diseases and conditions complicating childbirth; R01.1 Cardiac murmur, unspecified; Z78.9 Other specified health status; Z79.899 Other long term (current) drug therapy; Z87.59 Personal history of other complications of pregnancy, childbirth and the puerperium; Z23 Encounter for immunization
CPT/HCPCS: 59025; 59050; 76815; 85025; 86850; 86900; 86901; 87491; 87591; 87653; 99221; J7120; 90686; G0378

== ENCOUNTER → 2022-11-16 | Outpatient (CLI) | payer SELFPAY ==
[2022-11-22 14:31] LABS: HPV APTIMA, High Risk Negative (Negative)
== END | disposition home or self-care (01) ==
LOC: LABSPEC 14:21
PROVIDERS: PCP Physician Assistant; Referring Provider Obstetrics & Gynecology; Visit Provider Obstetrics & Gynecology
DX: Z12.4 Encounter for screening for malignant neoplasm of cervix (principal)
CPT/HCPCS: 87624; 88175; G0145

== ENCOUNTER → 2024-06-22 | Outpatient (CLI) | payer SELFPAY ==
[2024-06-22 12:37] LABS: Absolute Lymphocyte Count 1.48 X10^3/uL (0.83-4.51); Absolute Neutrophil Count 7.3 X10^3/uL (2.0-7.7); Basophil# 0.01 X10^3/uL; Basophil% 0.1 % (0-1); Eosinophil# 0.12 X10^3/uL; Eosinophils% 1.2 % (0-5); Hematocrit 38.4 % (37-47); Lymphocyte # 1.48 X10^3/ul (0.83-4.51); Lymphocyte % 15.4 % (19-41); Mean Corp Hgb Conc 33.9 g/dL (32-36); Mean Corpuscular Hgb 29.4 pg (27.0-32.0); Mean Corpuscular Volume 86.9 fL (81-99); Mean Platelet Vol. 10.2 fl (6.2-12.0); Monocyte# 0.67 X10^3/uL; NRBC Flagged by Analyzer 0 % (0-5); Neutrophil # 7.26 X10^3/uL (2.7-7.7); Neutrophil % 75.6 % (47-70); Platelet Count 242 K/mm3 (150-450); RBC Distribution Width CV 13.4 % (11.6-14.6); Red Blood Count 4.42 M/mm3 (4.2-5.4); White Blood Count 9.6 K/mm3 (4.4-11.0)
[2024-06-22 13:15] LABS: Protein, Urine (Random) < 6.0 mg/dL (<11.9)
[2024-06-22 13:35] LABS: HIV - WCH Non-Reactive (Nonreactive); Hepatitis B Surface Antigen Non-Reactive (Nonreactive); Hepatitis C Antibody Non-Reactive (Nonreactive); Rubella IgG Reactive (Nonreactive); Syphilis Antibodies Non-reactive
[2024-06-22 13:47] LABS: ALB/GLOB Ratio 0.9 RATIO (0.9-2.4); AST(SGOT) 23 U/L (15-37); Alanine Aminotransfer ALT/SGPT 36 U/L (13-56); Albumin, Serum 3.5 g/dL (3.2-5.0); Alkaline Phosphatase 55 U/L (45-117); Anion Gap 9 (5-15); BUN 11 mg/dL (7-18); BUN/Creat Ratio 23.2 RATIO (10-20); Calcium,Total 9.1 mg/dL (8.5-10.1); Chloride 107 mmol/L (98-107); Creatinine, Serum 0.47 mg/dL (0.55-1.02); EST Glomerular Filtration Rate 154 mL/min (>60); Est Glom Filt Rate - Afr Amer 186 mL/min (>60); Glucose 82 mg/dL (74-106); Potassium 3.9 mmol/L (3.5-5.1); Protein, Total 7.5 g/dL (6.4-8.2); Sodium Level 138 mmol/L (136-145)
[2024-06-25 20:08] LABS: Chlamydia By Nucleic Acid AMP Negative (Negative); Gonococcus By Nucleic Acid AMP Negative (Negative)
== END | disposition home or self-care (01) ==
LOC: WOBLAB 11:20
PROVIDERS: PCP Physician Assistant; Referring Provider Obstetrics & Gynecology; Visit Provider Obstetrics & Gynecology
DX: O09.511 Supervision of elderly primigravida, first trimester (principal); O99.210 Obesity complicating pregnancy, unspecified trimester; O09.299 Supervision of pregnancy with other poor reproductive or obstetric history, unspecified trimester; Z3A.00 Weeks of gestation of pregnancy not specified
CPT/HCPCS: 36415; 80053; 82570; 83036; 84156; 85025; 86703; 86762; 86780; 86803; 86850; 86900; 86901; 87086; 87340; 87491; 87591

== ENCOUNTER → 2024-08-07 | Outpatient (CLI) | payer SELFPAY ==
--- NOTE | 2024-08-07 14:02 | US_ITS ---
STUDY: SECOND AND THIRD TRIMESTER OBSTETRICAL ULTRASOUND REASON FOR EXAM: Female, 38 years old Anatomy Scan TECHNIQUE: Transabdominal and Transvaginal TECHNICAL QUALITY: Adequate. PRIOR ULTRASOUND: None. FINDINGS: There is a single intrauterine fetus. The fetus is in a breech presentation. There is demonstrated cardiac activity with a heart rate of 169 bpm. There is a normal amniotic fluid volume. The largest amniotic fluid pocket measures 4.3 cm. The amniotic fluid index (JAMEY) is within normal limits. The placenta is posterior in location and is not low lying. There are Grade 0 placental changes. The cervix measures 4.4 cm in length. The bilateral adnexal regions are normal. BIOMETRY: BPD: 4.6 cm: 20 weeks, 0 days: 31% HC: 18.4 cm: 20 weeks, 5 days: 57% AC: 16.3 cm: 21 weeks, 3 days: 75% FL: 3.2 cm: 19 weeks, 6 days: 24% CI: 71% FL/BPD: 69% FL/HC: 17% FL/AC: 20% HC/AC: 1.1 age by current US: 20 weeks, 4 days. BRENDAN by current US: December 21, 2024. Estimated weight: 369 grams, +/- 50 grams, 58 %. Age by LMP: 20 weeks, 3 days. BRENDAN by LMP: December 22, 2024. ANATOMY: Gender: Indeterminant Cranium: Normal lateral ventricles. Normal choroid plexus. Normal cerebellum. Normal cisterna magna. Normal face, nose and lips. Chest: Normal 4-chamber heart. Abdomen/Pelvis: Normal diaphragm. Normal stomach. Normal abdominal wall. Normal cord insertion. Normal 3 vessel cord. Normal kidneys. Normal bladder. Spine: Not well visualized due to the position. Extremities: Normal bilateral upper extremities. Normal bilateral lower extremities. IMPRESSION: Single live intrauterine gestation with a mean gestational age of 20 weeks and 4 days. Limited evaluation of the spine due to the positioning. Electronically Signed: Terrence Mcmanus MD at 14:43 EST , STUDY: FIRST TRIMESTER OBSTETRICAL ULTRASOUND REASON FOR EXAM: Female, 38 years old. Cervical length. TECHNIQUE: Transvaginal TECHNICAL QUALITY: Adequate. PRIOR ULTRASOUND: None. FINDINGS: Cervical length measures 4.4 cm. US/OB Anatomy Scan IMPRESSION: Cervical length measures 4.4 cm. Electronically Signed: Terrence Mcmanus MD at 14:44 EST ,
--- NOTE | 2024-08-07 14:04 | EKG12_ITS ---
Test Reason : HIGH RISK Blood Pressure : */* mmHG Vent. Rate : 75 BPM Atrial Rate : 75 BPM P-R Int : 150 ms QRS Dur : 86 ms QT Int : 376 ms P-R-T Axes : 52 62 28 degrees QTcB Int : 419 ms Normal sinus rhythm Normal ECG Confirmed by COLLEEN ROMERO, SANTIAGO ([id number]), supervising editor news reel PEARL JOYNER ([id number]) on 08/08/2024 11:16:52 AM Referred By: Liset Lira Confirmed By: SANTIAGO MACIAS MD
== END | disposition home or self-care (01) ==
PROVIDERS: PCP Physician Assistant; Referring Provider Obstetrics & Gynecology; Visit Provider Obstetrics & Gynecology
DX: O16.2 Unspecified maternal hypertension, second trimester (principal); Z3A.00 Weeks of gestation of pregnancy not specified
CPT/HCPCS: 76805; 93005

== ENCOUNTER → 2024-09-18 | Outpatient (CLI) | payer SELFPAY ==
--- NOTE | 2024-09-18 11:47 | US_ITS ---
HISTORY: complete anatomy -- spinal views needed. TECHNIQUE: Transabdominal pelvic ultrasound was performed. 59 images. COMPARISON: 08/07/2024. FINDINGS: INTRAUTERINE GESTATION(s): Single. PRESENTATION: Breech, head to maternal right HEART MOTION: 140 bpm. PLACENTA: Fundal, grade 0. CERVIX: 4.4 cm, long and closed. AMNIOTIC FLUID: Largest fluid pocket 6.7 cm. ANATOMY: Small thin fluid-filled membrane posterior to the cervical spine. Thoracic, lumbar, and sacral spine visualized and unremarkable. US/OB Limited (No Biometrics) IMPRESSION: Single living intrauterine currently in breech presentation with possible small cystic hygroma. Recommend close follow-up. Electronically Signed: Tiera Valverde MD at 9:04 EST ,
== END | disposition home or self-care (01) ==
PROVIDERS: PCP Physician Assistant; Referring Provider Obstetrics & Gynecology; Visit Provider Obstetrics & Gynecology
DX: O09.92 Supervision of high risk pregnancy, unspecified, second trimester (principal); Z82.79 Family history of other congenital malformations, deformations and chromosomal abnormalities; Z3A.00 Weeks of gestation of pregnancy not specified
CPT/HCPCS: 76815

== ENCOUNTER → 2024-09-26 | Outpatient (CLI) | payer SELFPAY ==
[2024-09-26 12:59] LABS: Absolute Lymphocyte Count 1.35 X10^3/uL (0.83-4.51); Absolute Neutrophil Count 8.6 X10^3/uL (2.0-7.7); Basophil# 0.03 X10^3/uL; Basophil% 0.3 % (0-1); Eosinophil# 0.12 X10^3/uL; Eosinophils% 1.1 % (0-5); Hematocrit 34.9 % (37-47); Lymphocyte # 1.35 X10^3/ul (0.83-4.51); Lymphocyte % 12.5 % (19-41); Mean Corp Hgb Conc 34.4 g/dL (32-36); Mean Corpuscular Hgb 29.2 pg (27.0-32.0); Mean Corpuscular Volume 84.9 fL (81-99); Mean Platelet Vol. 9.4 fl (6.2-12.0); Monocyte# 0.62 X10^3/uL; Monocyte% 5.7 % (0-10); NRBC Flagged by Analyzer 0 % (0-5); Neutrophil # 8.55 X10^3/uL (2.7-7.7); Neutrophil % 78.8 % (47-70); Platelet Count 238 K/mm3 (150-450); RBC Distribution Width CV 13.3 % (11.6-14.6); RBC Distribution Width SD 41.2 fl (35.1-43.9); Red Blood Count 4.11 M/mm3 (4.2-5.4); White Blood Count 10.8 K/mm3 (4.4-11.0)
[2024-09-26 13:26] LABS: Glucose Challenge Gest 1H 50g 123 mg/dL (70-140)
[2024-09-26 13:57] LABS: HIV - WCH Non-Reactive (Nonreactive); Syphilis Antibodies Non-reactive
== END | disposition home or self-care (01) ==
PROVIDERS: PCP Physician Assistant; Referring Provider Obstetrics & Gynecology; Visit Provider Obstetrics & Gynecology
DX: O09.92 Supervision of high risk pregnancy, unspecified, second trimester (principal); Z13.1 Encounter for screening for diabetes mellitus; Z3A.00 Weeks of gestation of pregnancy not specified
CPT/HCPCS: 36415; 82950; 85025; 86703; 86780

== ENCOUNTER → 2024-10-19 | Outpatient (CLI) | payer SELFPAY ==
--- NOTE | 2024-10-19 14:16 | US_ITS ---
PROCEDURE: OB LIMITED WITH BIOMETRICS REASON FOR EXAM: Checking for growth. Possible cystic hygroma. COMPARISON: None. FINDINGS Number: 1 Position: Cephalic Placental Position: Fundal Placental Abnormalities: None. DIMENSIONS: Biparietal Diameter: 8.5 cm/34 weeks 1 day. Head Circumference: 30.2 cm/33 weeks 4 days. Abdominal Circumference: 30.5 cm/34 weeks 3 days. Femur Length: 5.7 cm/29 weeks 6 days. ESTIMATED WEIGHT: 2140 +/-312 g. ESTIMATED WEIGHT PERCENTILE (24+ weeks): 96% ESTIMATED GESTATIONAL AGE: Baseline: 30 weeks By Ultrasound: ESTIMATED DATE OF DELIVERY: Baseline: 12/22/2024 By Ultrasound: 12/08/2024 BIOPHYSICAL ASSESSMENT: Amniotic Fluid Volume: Subjectively normal. Amniotic Fluid Index: 16.1 (8-24 cm normal range) Cardiac Motion: 140 bpm (average) Trunk and Limb Motion: N/A MATERNAL ANATOMY: Adnexa: Neither maternal ovary is successfully identified. Cervical Length (if measured): N/A ANATOMY: Craniocervical: Small crescent-shaped anechoic area redemonstrated. US/OB Limited With Biometrics IMPRESSION: 1. Measured parameters are documented above. 2. Small crescent-shaped fluid collection in the craniocervical region redemon strated. Reading Location: [facility]
== END | disposition home or self-care (01) ==
LOC: OPUS 14:13
PROVIDERS: PCP Physician Assistant; Referring Provider Obstetrics & Gynecology; Visit Provider Obstetrics & Gynecology
DX: O16.2 Unspecified maternal hypertension, second trimester (principal); Z3A.00 Weeks of gestation of pregnancy not specified
CPT/HCPCS: 76816

== ENCOUNTER → 2024-11-29 | Outpatient (CLI) | payer SELFPAY | END | disposition home or self-care (01) | LOC: LABSPEC 11:24 | PROVIDERS: PCP Physician Assistant; Referring Provider Obstetrics & Gynecology; Visit Provider Obstetrics & Gynecology | DX: O09.93 Supervision of high risk pregnancy, unspecified, third trimester (principal); Z3A.00 Weeks of gestation of pregnancy not specified | CPT/HCPCS: 87077; 87081; 87186 ==

== ENCOUNTER 2024-12-05 16:03 | Inpatient (IN) | payer SELFPAY, OTHER ==
[2024-12-05] VITALS (10 sets, daily range): BP systolic 122–145; BP diastolic 72–86; PULSE 71–86; RESP 16–18; TEMP 36.4–36.7; O2SAT 96–98; BMI 44.9
[2024-12-05] MEDS: Lactated Ringers 1,000 ML 50 ML IV (16:45)
--- NOTE | 2024-12-05 17:34 | HP.PCM.OB_ITS ---
HPI - General General Date of Admission: 12/05/24 HPI Narrative MIRELLA CASTRO, is a 38 F who presents with elevated blood pressures, history of hypertension but bps trending higher today in office and swelling increased. EFW 4000g on US this week. no vb lof good fm no regular ctx Maternal Data Information BRENDAN Calculator Estimated Delivery Date Method Current WG Current Estimate 12/22/24 LMP (Certain) 37w 4d Other Estimates 12/23/24 Ultrasound #1 37w 3d PFSH PFSH Medical History (Updated 12/05/24 @ 17:[address] Liset Lira MD) Pre-eclampsia Gestational HTN Palpitation Essential hypertension SVT (supraventricular tachycardia) Home Medications ?Medication ?Instructions ?Recorded ?Last Taken ?Type multivitamin no.47-iron fum 27 cap PO 06/08/24 Unknown History mg-folate no.1 1 mg-dha 300 mg capsule (PNV-DHA) aspirin 81 mg tablet,delayed 81 mg PO QDAY 09/26/24 Un known History release metoprolol tartrate 50 mg tablet 50 mg PO BID md order ed #180 tabs 11/21/24 Unknown Rx Allergy/AdvReac Type Severity Reaction Status Date / Time No Known Allergies Allergy Verified 12/05/24 17:26 Family History Grandmother Breast cancer, Onset Age: 60 maternal Aunt Breast cancer, Onset Age: 60 two maternal Aunts with breast cancer Uterine cancer, Onset Age: 60 maternal Aunt Heart valve replaced Mother Breast cancer, Onset Age: 60 Social History adopted: No household members: spouse and children housing: house number of children: 8 current occupational status: unemployed 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 current occupational exposures/hazards: No pets and animals: No history of recent travel: Yes ([place], [place]) out of state: Yes out of country: No sexually active: Yes Smoking Status: Never smoker alcohol intake: never substance use type: does not use well-balanced diet: daily or most days caffeine: No eating out: rarely or never during the past year weight has: remained stable what type of physical activity do you participate in: none aurora/protestant: Syn[employer] seatbelt use: sometimes do you feel safe at home: Yes additional social history: Edgardo- Olson/excavating History 12 Elective abortions Hx Para 8 Spontaneous abortions 3 Hx # Term Pregnancies Ectopic pregnancies Hx # Pregnancies Multiple births # of living children 8 Past Pregnancies Del. 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 Joaquin Reynoso 05/06/15 Reinaldo 39 live - full term Male Home with mid level game designer Cathie Reynoso 07/08/17 Diamond 39 live - full term Female Tristan Echeverria Edgardo 09/11/20 Mary Beth 39 live - full term Female Tristan Reynoso 10/02/22 Ronit 36 live - 6#9 Female [facility] Marcsevenony Delivery Date: 02/11/06 Last Updated by: Susan Reynolds IOL Pre-eclampsia Delivery Date: 07/01/08 Last Updated by: Susan Reynolds pitocin Visit Details Expected Delivery Route/Plan Labor Preferences- CB/BF classes: [] labor support person: [] labor intervention preferences: [] pain management options preferred: [] cut cord/dad catch: [] : [] PP control planned: [] discussed possible routes of delivery and associated risks: [] special requests: [] Plans Covid status: [] Flu vaccine: [] Tdap vaccine: [] Rhogam: [] LARC form signed: [] Problem list reviewed and updated with the most current plan of care details and appropriate orders placed. Relevant counseling for the gestational age provided. Continue routine care and follow up unless otherwise noted in visit notes/problem list details OB Flowsheet Initial Weight: Not Recorded Date -?-?-?-?-?-?-?-?-?-?-?-?- EGA Weight BP Urine Prot -?-?-?-?-?-?-?-?-?-?-?-?- Glucose FHR FuHt Pres Dilation -?-?-?-?-?-?-?-?-?-?-?-?- Effaced St Visit Note 06/22/24 -?-?-?-?-?-?-?-?-?-?-?-?- 13w 6d 260 lb 117/79 -?-?-?-?-?-?-?-?-?-?-?-?- 155 -?-?-?-?-?-?-?-?-?-?-?-?- SM- CRL cons wit h LMP 08/07/24 -?-?-?-?-?-?-?-?-?-?-?-?- 20w 3d 273 lb 4 oz 120/76 Nega tive -?-?-?-?-?-?-?-?-?-?-?-?- Negative 150 -?-?-?-?-?-?-?-?-?-?-?-?- MH-No VB, crampi ng. Some carpel tunnel-has splints. Flu vaccine given. 08/30/24 -?-?-?-?-?-?-?-?-?-?-?-?- 23w 5d 269 lb 8 oz 107/73 Nega tive -?-?-?-?-?-?-?-?-?-?-?-?- Negative 150 -?-?-?-?-?-?-?-?-?-?-?-?- JV- no lof, vagi nal bleeding, or dec fm. needs more views of spine due to position. she missed the cut off for afp testing. 09/26/24 -?-?-?-?-?-?-?-?-?-?-?-?- 27w 4d 272 lb 4 oz 126/76 -?-?-?-?-?-?-?-?-?-?-?-?- 154 32 -?-?-?-?-?-?-?-?-?-?-?-?- JV- ultrasound s hows a possible small cystic hygroma on ultrasound with the hospital. will consult MFM JV- ultrasound shows a possi ble small cystic hygroma on ultrasound with the hospital. will consult MFM, gct is pending. 10/11/24 -?-?-?-?-?-?-?-?-?-?-?-?- 29w 5d 273 lb 2 oz 125/80 Nega tive -?-?-?-?-?-?-?-?-?-?-?-?- Negative 134 33 -?-?-?-?-?-?-?-?-?-?-?-?- JV- pt was told that the consult and ultrasound with mfm would cost 17 Thousand dollars and wants to have a repeat scan with us first to see if the fluid collection is still there. plans tdap next visit. 10/19/24 -?-?-?-?-?-?-?-?-?-?-?-?- 30w 6d 275 lb 8 oz 134/86 -?-?-?-?-?-?-?-?-?-?-?-?- 140 33 -?-?-?-?-?-?-?-?-?-?-?-?- SM- discussed ch ecking [facility] for consult pricing, starting nsts next week 10/25/24 -?-?-?-?-?-?-?-?-?-?-?-?- 31w 5d 275 lb 8 oz 129/81 -?-?-?-?-?-?-?-?-?-?-?-?- 135 -?-?-?-?-?-?-?-?-?-?-?-?- KW- no vb/lof/ct x. good fm NST reactive. Spoke with ALEX and is contacting [facility] pricing. Tdap today,LARC done 11/02/24 -?-?-?-?-?-?-?-?-?-?-?-?- 32w 6d 276 lb 2 oz 122/81 Nega tive -?-?-?-?-?-?-?-?-?-?-?-?- Negative 145 -?-?-?-?-?-?-?-?-?-?-?-?- KW- NST today. n o vb/lof/ctx. good fm. referral was sent to resident clinic but patient has not heard back on pricing. will try to contact them again. discussed with triage and will also try calling 11/07/24 -?-?-?-?-?-?-?-?-?-?-?-?- 33w 4d 275 lb 8 oz 122/83 Nega tive -?-?-?-?-?-?-?-?-?-?-?-?- Negative 140 -?-?-?-?-?-?-?-?-?-?-?-?- MH-reactie NST. She has not called [facility]. Phone number given and she will call today. Denies VB, LOF and has good FM. 11/15/24 -?-?-?-?-?-?-?-?-?-?-?-?- 34w 5d 276 lb 6 oz 137/83 Nega tive -?-?-?-?-?-?-?-?-?-?-?-?- Negative 135 -?-?-?-?-?-?-?-?-?-?-?-?- KW-no vb/lof/ctx . good fm. had appt with nico [facility]. plans for follow up US with them by 11/27. Is trying to have it done next week. 11/21/24 -?-?-?-?-?-?-?-?-?-?-?-?- 35w 4d 279 lb 2 oz 133/84 Nega tive -?-?-?-?-?-?-?-?-?-?-?-?- Negative 130 37 -?-?-?-?-?-?-?-?-?-?-?-?- JV- pt finally s [facility] and they told her the cystic hygroma is not seen but that baby's estimated weight is over 8 pounds. Not sure if this means at delivery or if now. requesting records. NST reactive. will call with results. may need rpt gct if so. 11/29/24 -?-?-?-?-?-?-?-?-?-?-?-?- 36w 5d 278 lb 131/84 Negative -?-?-?-?-?-?-?-?-?-?-?-?- Negative 140 -?-?-?-?-?-?-?-?-?-?-?-?- JV- no lof, vagi nal bleeding, or dec fm. NST is reactive. gbs today. NST FHR Rate Baby A Baseline: 130 Variability:: Moderate Accelerations:: 15 x 15 Decelerations:: None NST Reactive:: Yes FHR Category:: Category I Uterine Activity:: irregular ROS Constitutional Constitutional: Reports systems reviewed and no addt'l complaints, except as documented Eyes Eyes: Denies change in vision ENT HEENT: Reports systems reviewed and no addt'l complaints, except as documented; Denies headache(s) Cardiovascular Cardiovascular: Reports systems reviewed and no addt'l complaints, except as documented; Denies chest pain or dyspnea Respiratory/Chest Respiratory/Chest: Reports systems reviewed and no addt'l complaints, except as documented Gastrointestinal Gastrointestinal: Reports systems reviewed and no addt'l complaints, except as documented; Denies abdominal pain Genitourinary Genitourinary: Reports systems reviewed and no addt'l complaints, except as documented, contractions Details: present (irregular) and movement Details: present; Denies dysuria or genital lesions Musculoskeletal Musculoskeletal: Reports systems reviewed and no addt'l complaints, except as documented Neurologic Neurologic: Reports systems reviewed and no addt'l complaints, except as documented Endocrine Endocrinology: Reports systems reviewed and no addt'l complaints, except as documented Vital Signs Vital Signs Vital Signs: 12/05/24 15:45 12/05/24 15:45 Pulse Rate 85 Blood Pressure 145/86 H BP Systolic 145 BP Diastolic 86 Weight Weight: 278 lb Body Mass Index (BMI) 44.9 Physical Exam Const alert, oriented x3, no apparent distress and healthy appearing HEENT normocephalic and moist oral mucous membranes Head and Scalp: atraumatic Neck full ROM, no lymphadenopathy, supple and thyroid normal General: trachea midline Lymph Lymphatic: no lymphadenopathy noted Chest inspection of chest normal Resp normal respiratory effort Cardio regular rate GI soft to palpation and non-tender GI Narrative: gravid Inspection: gravid external exam normal Manual OB Exam: estimated gestational size appropriate, presentation cephalic, dilated 1, effaced and station Extremity normal to inspection General Extremity: Negative for edema Skin no rashes or lesions noted Neuro no focal motor deficits and deep tendon reflexes 2+ bilaterally Motor Exam: strength 5/5 throughout and clonus absent Psych mental status grossly normal Labs Labs Labs: Blood Type O POSITIVE Antibody Screen NEGATIVE Hct 34.9 % (37-47) L Hgb 12.0 g/dL (12.0-15.0) Obstetrics Ultrasound Syphilis Total Ab Non-reactive Rubella IgG Antibody Reactive (Nonreactive) Hep Bs Antigen Non-Reactive (Nonreactive) Hepatitis C Antibody Non-Reactive (Nonreactive) Chlamydia DNA (MARBELLA) Negative (Negative) N.gonorrhoeae DNA (MARBELLA) Negative (Negative) HIV 1&2 Antibody Non-Reactive (Nonreactive) Glucose 1 Hr 50 gm 123 mg/dL (70-140) Group B Strep DNA POSITIVE (Negative) H Rhogam given: No Assessment & Plan (1) Positive GBS test: (2) Cystic hygroma of fetus: COMMENT: resolved on november [facility] scan, normal cardiac anatomy, no abnormalities seen. nl NIPT. large EFW consult in to [facility]. This was found on [facility] ultrasound. - [facility] consult costing 17 thousand dollars and wants to rpt scan with [facility] first: persists. Referrals to [facility] and [facility]. [facility] has not heard from either. [facility] has tried multiple times and patient does not return call. Phone number [facility] given and told needs to call today. Also discussed that if this is in fact hygroma, baby would need transferred after delivery. She will call today. (3) Hypertension affecting : QUALIFIERS: Trimester: second trimester Qualified Code(s): O16.2 - Unspecified maternal hypertension, second trimester COMMENT: followed by cardiology on metoprolol- refer back. last echo was in 2022. 81mg ASA recommended, baseline labs ordered. EKG ordered. deliver 38 weeks. 32 wk: NST 2Xwk plus wkly JAMEY, Growth US Q4 (4) Obesity affecting : QUALIFIERS: Trimester: second trimester Obesity type affecting : unspecified obesity Qualified Code(s): O99.212 - Obesity complicating , second trimester COMMENT: HgbA1c ordered, encouraged healhty weight gain (5) Advanced maternal age (AMA), 40 years or greater: COMMENT: growth US 36wk (6) Hx of pre-eclampsia in prior , currently : (7) FH: spina bifida: COMMENT: Cousin (8) FH: Down syndrome: COMMENT: Cousin of pt (9) Supervision of high-risk : QUALIFIERS: Trimester: third trimester Qualified Code(s): O09.93 - Supervision of high risk , unspecified, third trimester COMMENT: PRR , BRENDAN 83, PC Lucas Yan, (Cortés loss 16.5 wk), Emmanuel Chan Calvin, Jennica, Mary Beth, Ronit, Edgardo (10) : QUALIFIERS: Weeks of gestation: 37 weeks Qualified Code(s): Z3A.37 - 37 weeks gestation of COMMENT: Possible small cystic hygroma noted on follow-up anatomy US. NIPT low risk, plan carrier testing. (11) History of miscarriage, currently : COMMENT: 2009(16.5wk loss), 2019,2020, taking progesterone OTC (12) SVT (supraventricular tachycardia): PLAN: Plan plan IOL for elevated bps. gbs pos plan PCN.
[2024-12-05 17:35] LABS: Absolute Lymphocyte Count 1.54 X10^3/uL (0.83-4.51); Absolute Neutrophil Count 8.6 X10^3/uL (2.0-7.7); Basophil# 0.02 X10^3/uL; Basophil% 0.2 % (0-1); Eosinophil# 0.13 X10^3/uL; Eosinophils% 1.2 % (0-5); Hematocrit 34.3 % (37-47); Hemoglobin 11.9 g/dL (12.0-15.0); Lymphocyte # 1.54 X10^3/ul (0.83-4.51); Lymphocyte % 13.6 % (19-41); Mean Corp Hgb Conc 34.7 g/dL (32-36); Mean Corpuscular Hgb 29.5 pg (27.0-32.0); Mean Corpuscular Volume 85.1 fL (81-99); Mean Platelet Vol. 10.1 fl (6.2-12.0); Monocyte# 0.83 X10^3/uL; Monocyte% 7.3 % (0-10); NRBC Flagged by Analyzer 0 % (0-5); Neutrophil # 8.62 X10^3/uL (2.7-7.7); Neutrophil % 76.3 % (47-70); Platelet Count 272 K/mm3 (150-450); RBC Distribution Width CV 13.5 % (11.6-14.6); RBC Distribution Width SD 41.7 fl (35.1-43.9); Red Blood Count 4.03 M/mm3 (4.2-5.4); White Blood Count 11.3 K/mm3 (4.4-11.0)
[2024-12-05] MEDS: Oxytocin 15 Units/NS 250ml 15 UNITS/250 ML IV.SOLN 2 UNITS IV (17:41)
[2024-12-05 18:12] LABS: Protein, Urine (Random) 7.6 mg/dL (0.0-12.0); Protein:Creat Ratio 210 mg/g CRE (0-200)
[2024-12-05 18:13] LABS: Alanine Aminotransfer ALT/SGPT 20 U/L (<=34); Creatinine, Serum 0.56 mg/dL (0.70-1.20); EST Glomerular Filtration Rate 118 (>60); Estimated Creatinine Clearance 181.34 ml/min (50-250); Syphilis Antibodies Nonreactive (Nonreactive)
[2024-12-05 18:14] LABS: AST(SGOT) 26 U/L (<=31); Uric Acid 3.4 mg/dL (2.6-6.0)
[2024-12-05] MEDS: Penicillin G Pot 5,000,000 UNITS in 0.9% Normal Saline (100mL MB+) 100 ML 150 UNITS IV (18:58)
[2024-12-05] MEDS: miSOPROStol 25 MCG TABLET VAGINAL (19:01)
[2024-12-05] MEDS: Metoprolol Tartrate 50 MG Tablet PO (21:40)
[2024-12-05] MEDS: Penicillin G 3,000,000 Units 50 ML 100 UNITS IV (23:27)
[2024-12-06] VITALS (71 sets, daily range): BP systolic 107–157; BP diastolic 62–103; PULSE 60–235; RESP 16–18; TEMP 36.3–37; O2SAT 83–100
[2024-12-06] MEDS: LACTATED RINGERS 500 ML 999 ML IV (00:03)
[2024-12-06] MEDS: miSOPROStol 25 MCG TABLET VAGINAL ×2 (00:17→04:35)
[2024-12-06] MEDS: Penicillin G 3,000,000 Units 50 ML 100 UNITS IV ×2 (03:32→07:50)
[2024-12-06] MEDS: 0.9% Saline Lock 10 ML Syringe IV ×2 (03:42→07:50)
[2024-12-06] MEDS: Lactated Ringers 1,000 ML 999 ML IV (08:24)
--- NOTE | 2024-12-06 08:27 | PCM.PN.BLA ---
Progress Note patient is comfortable with contractions prior to exam. She consents verbally to an exam and possible cameron or rupture of membranes. current tracing: FHT: Moderate variability reactive no decelerations category I tracing [place]: q 1-3 min Contractions cx 4/70/-3, membranes ruptured. clear fluid returned A/P: IOL for gestational hypertension start pitocin as needed at 0830 for epidural now.
[2024-12-06] MEDS: Metoprolol Tartrate 50 MG Tablet PO ×2 (08:40→22:25)
[2024-12-06] MEDS: fentaNYL-bupivacaine (epidural) 100 ML BAG EPIDURAL (09:11)
--- NOTE | 2024-12-06 11:30 | OB.VAGDELI_ITS ---
Assessment & Plan (1) Positive GBS test: (2) History of hypertension: (3) Cystic hygroma of fetus: COMMENT: resolved on november [facility] scan, normal cardiac anatomy, no abnormalities seen. nl NIPT. large EFW consult in to [facility]. This was found on [facility] ultrasound. - [facility] consult costing 17 thousand dollars and wants to rpt scan with [facility] first: persists. Referrals to [facility] and [facility]. [facility] has not heard from either. [facility] has tried multiple times and patient does not return call. Phone number [facility] given and told needs to call today. Also discussed that if this is in fact hygroma, baby would need transferred after delivery. She will call today. (4) Hypertension affecting : QUALIFIERS: Trimester: second trimester Qualified Code(s): O16.2 - Unspecified maternal hypertension, second trimester COMMENT: followed by cardiology on metoprolol- refer back. last echo was in 2022. 81mg ASA recommended, baseline labs ordered. EKG ordered. deliver 38 weeks. 32 wk: NST 2Xwk plus wkly JAMEY, Growth US Q4 (5) Obesity affecting : QUALIFIERS: Trimester: second trimester Obesity type affecting : unspecified obesity Qualified Code(s): O99.212 - Obesity complicating , second trimester COMMENT: HgbA1c ordered, encouraged healhty weight gain (6) Advanced maternal age (AMA), 40 years or greater: COMMENT: growth US 36wk (7) Hx of pre-eclampsia in prior , currently : (8) FH: spina bifida: COMMENT: Cousin (9) FH: Down syndrome: COMMENT: Cousin of pt (10) Supervision of high-risk : QUALIFIERS: Trimester: third trimester Qualified Code(s): O09.93 - Supervision of high risk , unspecified, third trimester COMMENT: PRR , BRENDAN 83, Lucas Carroll, (Cortés loss 16.5 wk), Emmanuel Chan Calvin, Jennica, Lashawna, Natasha, Edgardo (11) : QUALIFIERS: Weeks of gestation: 37 weeks Qualified Code(s): Z3A.37 - 37 weeks gestation of COMMENT: Possible small cystic hygroma noted on follow-up anatomy US. NIPT low risk, plan carrier testing. (12) History of miscarriage, currently : COMMENT: 2009(16.5wk loss), 2019,2020, taking progesterone OTC (13) SVT (supraventricular tachycardia): Maternal Data Information BRENDAN Calculator Estimated Delivery Date Method Current WG Current Estimate 12/22/24 LMP (Certain) 37w 5d Other Estimates 12/23/24 Ultrasound #1 37w 4d Final BRENDAN: 12/22/24 Final BRENDAN Source: LMP Vaginal Delivery Maternal Presentation Maternal Presentation: Medically Indicated Induction Type of Induction: Pitocin, Amniotomy and Cytotec Medical Reason for Induction: Gestational Hypertension Vaginal Delivery Information Procedure Performed: Spontaneous Vaginal Delivery Surgeon/Practitioner: Renee Oliva Date of Procedure: 12/06/24 Pre-Procedure Diagnosis: gestational hypertension, grand multiparous, 37 weeks Post-Procedure Diagnosis: gestational hypertension, grand multiparous, 37 weeks Type of anesthesia: Epidural Estimated Blood Loss: 100cc Time of Delivery: 11:06 Findings Description of procedure: Patient began pushing and delivered the head in the NAHOMI presentation. The head was delivered atraumatically and a loose nuchal cord ?1 was identified and easily reduced over the 's head. The anterior and posterior shoulders delivered without complication followed by the rest of the and the infant was placed on the maternal abdomen. Delayed cord clamping was employed for approximately 60 seconds. Cord was clamped and cut and gentle traction was applied to the cord and the placenta delivered spontaneously immediately following it was noted to be intact with three-vessel cord. The perineum and vagina were inspected and noted to have no laceration. EBL was 100 cc. Patient and tolerated delivery well. Procedure findings: viable female infant harmony Presentation: Vertex Amniotic Membrane Rupture Type: Spontaneous Amniotic Fluid Description: Clear Placental Delivery Description: Spontaneous Placenta Disposition: [facility] Cord Vessel Description: 3 Vessels Cord Entanglement: Around neck x 1, loose Nuchal Cord Compression: Without compression Infant A Gender: Female (1 minute): 8 (5 minute): 9 Delayed Cord Clamping: Yes Engine Manager blending kettle tender: No Post Vaginal Deli Medications given after delivery: IV Pitocin Episiotomy Description: None Laceration: None Complication Complications: No Multi Select Codes Urinary/Genital Urinary/Genital CPT Codes: 15454 Vaginal Delivery [facility]
--- NOTE | 2024-12-06 11:32 | DCINST_ITS ---
Discharge Instructions Diet Discharge Diet: No restrictions DC O2, CPAP, BIPAP needs Home O2 Discharge instructions: No Dressing / Incision Discharge Activity: Return to Normal Activity, May Not Drive (while taking narcotic pain medications.) and May Shower May resume sexual activity in: 4-6 weeks Dressing / Incision Call your doctor if your incision/area has: Continuous Slow Oozing, Sudden Increased Bleeding, Increased Pain/ Swelling, Increased Redness and Foul Smelling Discharge Follow Up Care Please Follow Up With: Renee Oliva DO When: Call [phone] to make an appointment with your doctor in 6 weeks. If you had elevated blood pressure or 4th degree laceration, you will need to be seen in 2 weeks. Test Results: Test results from this visit will be discussed in further detail at your follow- up appointment, if applicable. Discharge Plan Admission Admit Date/Time: 12/05/24 16:03 Attending Provider: Renee Oliva Primary Care Provider: Osmany Mackay Discharge Orders/Prescriptions Prescriptions: No Action PNV-DHA 27 mg iron-1 mg -300 mg capsule PO aspirin 81 mg tablet,delayed release (DR/EC) 81 mg PO QDAY metoprolol tartrate 50 mg tablet 50 mg PO BID Qty: 180 3RF Referrals / Follow Up: Osmany Mackay PA-C [Primary Care Provider] -
[2024-12-07] VITALS (7 sets, daily range): BP systolic 128–134; BP diastolic 75–79; PULSE 61–68; RESP 16; TEMP 36.6–36.8; O2SAT 97–98
[2024-12-07] MEDS: Acetaminophen 500 MG Tablet 1000 MG PO (07:53)
--- NOTE | 2024-12-07 09:24 | PN.OBGYN_ITS ---
Subjective Subjective Patient doing well without complaints. Tolerating PO. Ambulating and voiding without difficulty. Feeding well. Denies chest pain, shortness of breath, calf pain/swelling, fevers, chills, lightheadedness. Objective Data Objective Data Vital Signs: Vital Signs Temp Pulse Resp BP Pulse Ox O2 Del Method 97.8 F 61 16 128/77 H 98 Room Air 12/07/24 07:50 12/07/24 07:50 12/07/24 07:50 12/07/24 07:50 12/07/24 07:50 12/07/24 07:50 Oxygen Delivery Method Room Air Weight: 278 lb Body Mass Index (BMI) 44.9 Intake & Output: Intake and Output for Last 24 Hours 12/05/24 12/06/24 12/07/24 23:59 23:59 23:59 Intake Total 547.64 / 547.64 2609.70 / 2609.70 Output Total 200 / 200 450 / 450 Balance 347.64 / 347.64 2159.70 / 2159.70 Lab / Micro Data 12/05/24 16:45 12/05/24 16:45 ROS Constitutional Constitutional: Denies chills, fatigue, fever(s), poor appetite or weakness Eyes Eyes: Denies blurry vision, change in vision, seeing flashes or spots in vision ENT HEENT: Denies dizziness, headache(s), loss taste/smell or sore throat Cardiovascular Cardiovascular: Denies chest pain, dizziness, dyspnea, irregular heart rhythm, palpitations or rapid heart rate Respiratory/Chest Respiratory/Chest: Denies chest tightness, cough, dyspnea or breast pain Gastrointestinal Gastrointestinal: Denies abdominal pain, constipation or vomiting Genitourinary Genitourinary: Denies dysuria or flank pain Musculoskeletal Musculoskeletal: Denies difficulty walking, joint pain, limited range of motion or numbness Neurologic Neurologic: Denies abnormal movements, abnormal speech, dizziness, numbness, seizure-like activity or syncope Psychiatric Psychiatric: Denies anxiety, behavioral changes, change in appetite, confusion, depression or suicidal thoughts Physical Exam Const alert, oriented x3 and no apparent distress General Appearance: cooperative and comfortable Resp normal respiratory effort Cardio regular rate GI normal to inspection, nondistended, normoactive bowel sounds GI Narrative: uterus is firm below umbilicus Palpation: soft Back/Spine no CVA tenderness and thoraco-lumbar ROM normal Extremity normal to inspection, no clubbing, cyanosis or edema, no calf tenderness and no pedal edema Psych mental status grossly normal, thought process normal, cooperative, affect normal, speech normal, activity/motor behavior normal, denies homicidal ideation and denies suicidal ideation Assessment & Plan (1) Vaginal delivery: COMMENT: JV- IOL 37 weeks baby girl [place] 12/06/24 PLAN: Plan s/p PPD # 1 1. routine post delivery care 2. breast feeding- support given 3. rh positive 4. rubella immune 5. htn- follow up in 1-2 weeks for bp check or check in with pcp and report to us bp in 1 week.
[2024-12-07] MEDS: Metoprolol Tartrate 50 MG Tablet PO (09:29)
--- NOTE | 2024-12-11 10:22 | NURSING ---
Follow up phone call made. Denies any headaches, visual changes or baby blues. Patient states she does have a sore spot on the back of her lower leg, states it is not hot to touch or red, but definitely painful. Instructed patient to call [facility] for follow up on leg pain, states understanding. is nursing well, milk is in. States her bleeding is minimal. Denies any questions at this time.
== END 2024-12-07 17:00 | disposition home or self-care (01) | DRG 806 ==
PROVIDERS: Obstetrics & Gynecology; Admitting Provider Obstetrics & Gynecology; PCP Physician Assistant; Referring Provider Obstetrics & Gynecology; Visit Provider Obstetrics & Gynecology
DX: O13.4 Gestational [pregnancy-induced] hypertension without significant proteinuria, complicating childbirth (principal); Z37.0 Single live birth; O98.82 Other maternal infectious and parasitic diseases complicating childbirth; I47.10 Supraventricular tachycardia, unspecified; O99.214 Obesity complicating childbirth; B95.1 Streptococcus, group B, as the cause of diseases classified elsewhere; O69.81X0 Labor and delivery complicated by cord around neck, without compression, not applicable or unspecified; Z79.82 Long term (current) use of aspirin; Z3A.37 37 weeks gestation of pregnancy; Z79.899 Other long term (current) drug therapy; Z87.59 Personal history of other complications of pregnancy, childbirth and the puerperium; O99.42 Diseases of the circulatory system complicating childbirth; Z82.79 Family history of other congenital malformations, deformations and chromosomal abnormalities
CPT/HCPCS: 59025; 59050; 82565; 82570; 84156; 84450; 84460; 84550; 85025; 85027; 86780; 86850; 86900; 86901; 99221; A4216; G0378